=== PATIENT | male | born 1960 ===

== ENCOUNTER 2020-04-06 16:49 | Inpatient (IN) | payer OTHER ==
[~2020-04-06] VITALS: Ht 180.3 cm; Wt 89.8 kg
[2020-04-06] MEDS ORDERED: COZAAR (17:28)
--- NOTE | 2020-04-06 17:28 | NUR ---
PTE SE RECIBE POR HEMMORRHOIDS Y DOLOR JACOB REFIERE PTE.
--- NOTE | 2020-04-06 20:20 | NUR ---
SE EDCUA A PTE SOBRE TX MEDICO JYOTSNA REFIERE ENTENDER. SE ERIC MUESTRAS DE LAB UTILIZANDO MEDIDAS ASEPTICAS. SE COLOCA H/L A PTE EL CUAL SE ENCUENTRA PATENTE Y OMID DE EDEMA. SE REALIZA EKG A PTE. SE COLOCAN MEDS A PTE LOS CUALES TOLERA.
== END 2020-04-11 20:15 | disposition home or self-care (01) | DRG 395 ==
LOC: ER 16:49 → SURH 18:33 → SURG 18:33 → SURH 21:27
PROVIDERS: ADMIT Colon & Rectal Surgery; ATTEND Colon & Rectal Surgery
PROC: 0DBQ8ZX Excision of Anus, Via Natural or Artificial Opening Endoscopic, Diagnostic (ICD-10-PCS; principal; 2020-04-10 14:00)
DX: K64.2 Third degree hemorrhoids (principal); Z20.828 Contact with and (suspected) exposure to other viral communicable diseases; I11.9 Hypertensive heart disease without heart failure

== ENCOUNTER 2022-02-11 05:45 | Day surgery (SDC) | payer OTHER ==
[~2022-02-11 05:45] MED LIST: COZAAR
== END 2022-02-11 10:00 | disposition home or self-care (01) ==
LOC: AMB-ENDOS 05:45
PROVIDERS: ATTEND Colon & Rectal Surgery
DX: K29.50 Unspecified chronic gastritis without bleeding (principal); Q43.8 Other specified congenital malformations of intestine; Z20.822 Contact with and (suspected) exposure to COVID-19; I11.9 Hypertensive heart disease without heart failure; Z86.010 Personal history of colon polyps; K64.2 Third degree hemorrhoids